=== PATIENT | male | born 1975 | race Caucasian/White ===

== ENCOUNTER 2019-08-12 09:28 | Emergency (ER) | payer SELFPAY ==
[2019-08-12 10:47] LABS: A TYPE INFLUENZA AG NEGATIVE (NEGATIVE); B INFLUENZA AG NEGATIVE (NEGATIVE)
--- NOTE | 2019-08-12 11:20 | ER Document Report ---
HPI - HPI Time Seen by Provider: 08/12/19 10:00 Pain Level: Denies Notes: Patient is a 44-year-old male presenting to the emergency department chief complaint of cough, congestion, fever, chills and body aches that began yesterday. [place] Denies any nausea, vomiting, diarrhea. Reports excessive fatigue. - CONSTITUTIONAL Constitutional: DENIES: Fever, Chills - NEURO Neurology: REPORTS: Headache - RESPIRATORY Respiratory: REPORTS: Coughing Past Medical History - General Information source: Patient - Social History Smoking Status: Current Every Day Smoker Frequency of alcohol use: None Drug Abuse: None Family History: Reviewed & Not Pertinent Patient has suicidal ideation: No Patient has homicidal ideation: No - Medical History Medical History: Negative Surgical Hx: Negative - Immunizations Immunizations up to date: Yes Vertical Provider Document - CONSTITUTIONAL Notes: PHYSICAL EXAMINATION: GENERAL: Well-appearing, well-nourished and in no acute distress. HEAD: Atraumatic, normocephalic. EYES: Pupils equal round extraocular movements intact, conjunctiva are normal. ENT: Nares patent, oropharynx clear, nonerythematous, no tonsillar swelling, uvula midline. NECK: Normal range of motion LUNGS: No respiratory distress, lung sounds clear and equal bilaterally. Cough noted. Musculoskeletal: Normal range of motion NEUROLOGICAL: Normal speech, normal gait. PSYCH: Normal mood, normal affect. SKIN: Warm, Dry, normal turgor, no rashes or lesions noted. - INFECTION CONTROL TRAVEL OUTSIDE OF THE [place] IN LAST 30 DAYS: No Course - Re-evaluation Re-evalutation: Patient appears well, nontoxic, physical exam is unremarkable. Likely viral upper respiratory illness. Patient will be discharged home at this time. Patient is in agreements with plan. - Vital Signs Vital signs: Temp Pulse Resp BP Pulse Ox 98.7 F 87 18 153/81 H 97 08/12/19 09:33 08/12/19 09:33 08/12/19 09:33 08/12/19 09:33 08/12/19 09:33 Discharge - Discharge Clinical Impression: Viral illness Condition: Stable Disposition: HOME, SELF-CARE Instructions: Viral Syndrome ([facility]) Additional Instructions: Your influenza testing today was negative. Light you likely have a viral illness. Please push fluids. Alternate Tylenol and ibuprofen. Get plenty of rest. Wash your hands. Follow-up with your primary provider in 3 to 5 days if not improving or return to the emergency department if worsening. Forms: Return to Work
[2019-08-12 11:39] VITALS: BP 128/82
== END 2019-08-12 11:50 | disposition home or self-care (01) ==
LOC: ER 09:28
DX: B34.9 Viral infection, unspecified (principal); R05 Cough; R09.81 Nasal congestion; R50.9 Fever, unspecified; M79.10 Myalgia, unspecified site; R51 Headache; F17.200 Nicotine dependence, unspecified, uncomplicated
CPT/HCPCS: 87804; 99283

== ENCOUNTER 2019-12-27 13:42 | Emergency (ER) | payer BC ==
[2019-12-27 13:54] VITALS: BP 120/73
--- NOTE | 2019-12-27 14:37 | ER Document Report ---
HPI - HPI Time Seen by Provider: 12/27/19 14:28 Pain Level: 3 Context: Patient is a 44-year-old male who presents emergency department with a chief complaint of a wound to his left mid forearm. Stated it was there about a week ago. States it has drained purulent drainage. Denies any history of MRSA. Denies any history of IV drug use. He states that he might have been bit by a spider. He does not take any medications. Denies any past medical history. - ROS Systems Reviewed and Negative: Yes All other systems reviewed and negative - CONSTITUTIONAL Constitutional: REPORTS: Chills. DENIES: Fever - RESPIRATORY Respiratory: DENIES: Trouble Breathing, Coughing - GASTROINTESTINAL Gastrointestinal: DENIES: Abdominal Pain, Nausea, Patient vomiting - MUSCULOSKELETAL Musculoskeletal: REPORTS: Extremity pain - Left forearm abscess - DERM Skin Color: Normal Skin Problems: Pustule - Left forearm Past Medical History - General Information source: Patient - Social History Smoking Status: Current Every Day Smoker Frequency of alcohol use: None Drug Abuse: None Family History: Reviewed & Not Pertinent - Immunizations Immunizations up to date: Yes Vertical Provider Document - CONSTITUTIONAL Agree With Documented VS: Yes Exam Limitations: No Limitations General Appearance: No Apparent Distress - INFECTION CONTROL TRAVEL OUTSIDE OF THE [place] IN LAST 30 DAYS: No - HEENT HEENT: Atraumatic, Normocephalic, PERRLA - NECK Neck: Normal Inspection - RESPIRATORY Respiratory: No Respiratory Distress - CARDIOVASCULAR Cardiovascular: Regular Rate, Regular Rhythm Pulses: Normal: Radial - MUSCULOSKELETAL/EXTREMETIES Musculoskeletal/Extremeties: FROM - NEURO Level of Consciousness: Awake, Alert, Appropriate Motor/Sensory: No Motor Deficit, No Sensory Deficit - DERM Integumentary: Warm, Dry, Abscess - Drained to left forearm Course - Re-evaluation Re-evalutation: 12/27/19 14:41 Patient's abscess was drained on its own. We will start him on Bactrim. Culture was sent. Patient is to follow-up with primary care provider as needed. Low suspicion for necrotizing fasciitis. Follow-up precautions were given. Verbal discharge instructions were given to the patient. They verbalized understanding. They are stable for discharge. - Vital Signs Vital signs: Temp Pulse Resp BP Pulse Ox 98.1 F 71 20 120/73 99 12/27/19 13:53 12/27/19 13:53 12/27/19 13:53 12/27/19 13:53 12/27/19 13:53 Discharge - Discharge Clinical Impression: Abscess Condition: Stable Disposition: HOME, SELF-CARE Instructions: Abscess ([facility]), Trimethoprim-Sulfa ([facility]) Additional Instructions: You were seen today in the emergency department for an evaluation of your abscess. Continue to drain it if it has any drainage. Take the antibiotics as prescribed. If it gets worse, return to the emergency department. Prescriptions: Sulfamethoxazole/Trimethoprim [Bactrim Ds Tablet] 1 each PO BID 7 Days #14 tablet Referrals: AZAM PEREZ MD [NO LOCAL MD] - Follow up in 3-5 days
== END 2019-12-27 14:44 | disposition home or self-care (01) ==
LOC: ER 13:42
DX: L02.414 Cutaneous abscess of left upper limb (principal); F17.200 Nicotine dependence, unspecified, uncomplicated
CPT/HCPCS: 87070; 87077; 87186; 87205; 99282